=== PATIENT | male | born 1990 | race African-American/Black ===

== ENCOUNTER 2018-11-09 22:02 | Emergency (ER) | payer OTHER ==
[~2018-11-09] VITALS: Ht 190.5 cm; Wt 77.1 kg
[2018-11-09] MEDS ORDERED: NORVASC5 MG PO (22:37)
[2018-11-09 23:29] VITALS: BP 158/108
== END 2018-11-09 23:29 | disposition home or self-care (01) ==
LOC: ER 22:02
DX: D57.1 Sickle-cell disease without crisis (principal); I12.0 Hypertensive chronic kidney disease with stage 5 chronic kidney disease or end stage renal disease; N18.5 Chronic kidney disease, stage 5; Z99.2 Dependence on renal dialysis; Z88.6 Allergy status to analgesic agent; Z91.040 Latex allergy status